=== PATIENT | male | born 1980 | race Caucasian/White ===

== ENCOUNTER 2017-08-27 16:56 | Emergency (ER) | payer BC, OTHER ==
[~2017-08-27] VITALS: Ht 185.4 cm; Wt 131.5 kg
[2017-08-27 17:58] LABS: Basophils # (auto) 0 uL; Basophils % (auto) 0.3 % (0.0-2.0); Eosinophils # (auto) 0.2 uL; Eosinophils % (auto) 1.5 % (0.0-7.0); Hematocrit 48.2 % (41.0-53.0); Hemoglobin 16.7 g/dL (13.5-17.5); Lymphocytes # (auto) 2.3 uL; Lymphocytes % (auto) 15.5 % (10.0-50.0); Mean Corpuscular Hemoglobin 28.5 pg (28.0-32.0); Mean Corpuscular Hgb Conc. 34.6 g/dL (32.0-36.0); Mean Corpuscular Volume 82.3 fL (80.0-100.0); Mean Platelet Volume 9.3 fL (6.9-10.8); Monocytes # (auto) 1.3 uL; Monocytes % (auto) 9.1 % (0.0-12.0); Neutrophils # (auto) 10.7 uL; Neutrophils % (auto) 73.6 % (37.0-80.0); Nucleated Red Blood Cells % 0.1 %; Platelet Count (auto) 255 10^3/uL (140-450); Red Cell Distribution Width 13.6 % (11.8-14.3); White Blood Cell 14.6 10^3/uL (4.4-10.8)
[2017-08-27 18:01] LABS: Urine Bilirubin Negative (Negative); Urine Blood 2+ /uL (Negative); Urine Color Yellow (Yellow); Urine Glucose Normal (Normal); Urine Ketone Negative (Negative); Urine Mucus FEW (None Seen); Urine Nitrite Negative (Negative); Urine RBC 24 /hpf (0 - 3); Urine Squamous Epithelial Cell FEW /hpf (<5); Urine Urobilinogen Normal (Negative)
[2017-08-27 18:34] LABS: Albumin 4.2 g/dL (3.4-5.0); Alkaline Phosphatase 78 U/L (45-117); Anion Gap 10 (5-15); Aspartate Aminotransferase 22 U/L (15-37); BUN/Creatinine Ratio 11.5; Bilirubin, Total 0.4 mg/dL (0.2-1.0); Blood Urea Nitrogen 12 mg/dL (7-18); Carbon Dioxide 26 mmol/L (21-32); Chloride 103 mmol/L (98-107); GFR African American 102 mL/min; GFR Non-African American 85 mL/min; Glucose 91 mg/dL (74-106); Magnesium 2.3 mg/dL (1.6-2.6); Potassium 3.9 mmol/L (3.5-5.1); Sodium 139 mmol/L (136-145); Total Protein 8.3 g/dL (6.4-8.2)
[2017-08-27] MEDS ORDERED: IOHEXOL 350 MG/ML 100ML IJ ONE (18:37)
[2017-08-27 20:58] LABS: B-Type Natriuretic Peptide 2.89 pg/mL (0-100)
[2017-08-27 21:04] LABS: Temperature: 22.2 C (20.0-25.0)
[2017-08-28 00:28] VITALS: BP 136/95
== END 2017-08-28 00:31 | disposition home or self-care (01) ==
LOC: ER 17:13
DX: R07.89 Other chest pain (principal); R09.1 Pleurisy; I10 Essential (primary) hypertension; Z23 Encounter for immunization
CPT/HCPCS: 36415; 71275; 80053; 81001; 83735; 83880; 84484; 85025; 85379; 93005; 99285; Q9967

== ENCOUNTER 2020-06-23 01:44 | Emergency (ER) | payer BC ==
[~2020-06-23] VITALS: Ht 185.4 cm; Wt 129.3 kg
[2020-06-23 06:48] VITALS: BP 165/97
== END 2020-06-23 07:44 | disposition home or self-care (01) ==
LOC: ER 01:44
DX: G51.0 Bell's palsy (principal); I10 Essential (primary) hypertension; Z90.49 Acquired absence of other specified parts of digestive tract
CPT/HCPCS: 70450